=== PATIENT | female | born 1990 | race Caucasian/White ===

== ENCOUNTER 2016-05-30 08:01 | Emergency (ER) | payer BC ==
[2016-05-30 08:13] VITALS: RESP 18
--- NOTE | 2016-05-30 08:36 | ED ---
Female Urogenital HPI - General Chief complaint: Vaginal Bleeding Stated complaint: poss miscarriage, 6 weeks Time Seen by Provider: 05/30/16 08:17 Source: patient, RN notes reviewed Mode of arrival: ambulatory - History of Present Illness Initial comments: 25-year-old female presents emergency Department chief complaint vaginal bleeding. Patient states she is A0. Patient states that she's had some spotting since Thursday. Patient states that it was more brownish in color on Thursday and states yesterday she had no bleeding. Patient states she woke up today and had small clot. Patient states she has no lower dental pain, cramping. Patient states that she went to the clinic the other day and one ultrasound though they did not perform one. Patient states that they did check to make sure she was . Patient states she has a phone call to [facility] for an appointment and they're scheduled call her back. Patient denies any nausea, vomiting diarrhea constipation. Patient denies any dysuria hematuria. Patient states that she had her blood type screen. Patient is O+ blood type. - Related Data Home Medications Medication Instructions Recorded Confirmed Pnv #78/Iron Asp Gly/FA#1/Dha 1 cap PO HS 05/30/16 05/30/16 [Prenate Dha Softgel] Allergies Allergy/AdvReac Type Severity Reaction Status Date / Time No Known Allergies Allergy Verified 05/30/16 08:13 Review of Systems ROS Statement: Those systems with pertinent positive or pertinent negative responses have been documented in the HPI. ROS Other: All systems not noted in ROS Statement are negative. Past Medical History Past Medical History: Asthma Additional Past Medical History / Comment(s): HX OF EXERCISE INDUCED ASTHMA History of Any Multi-Drug Resistant Organisms: None Reported Past Surgical History: Orthopedic Surgery Additional Past Surgical History / Comment(s): FX RT FIBULA REPAIR Past Anesthesia/Blood Transfusion Reactions: No Reported Reaction Past Psychological History: No Psychological Hx Reported Smoking Status: Never smoker Past Alcohol Use History: None Reported Past Drug Use History: None Reported - Past Family History Mother Family Medical History: CVA/TIA General Exam General appearance: alert, in no apparent distress Respiratory exam: Present: normal lung sounds bilaterally. Absent: respiratory distress, wheezes, rales, rhonchi, stridor Cardiovascular Exam: Present: regular rate, normal rhythm, normal heart sounds. Absent: systolic murmur, diastolic murmur, rubs, gallop, clicks GI/Abdominal exam: Present: soft, normal bowel sounds. Absent: distended, tenderness, guarding, rebound, rigid Skin exam: Present: warm, dry, intact, normal color. Absent: rash Course Vital Signs 05/30/16 05/30/16 08:10 11:03 Temperature 97.9 F 98.0 F Pulse Rate 71 67 Respiratory 18 18 Rate Blood Pressure 154/87 110/57 O2 Sat by Pulse 99 98 Oximetry Medical Decision Making - Medical Decision Making 25-year-old female presented for vaginal bleeding and . Patient was him clinic for blood work, urine. Patient states she is concerned. Patient did have an ultrasound here which showed early gestational sac though there is no heart activity at this time. Also early gestation. Patient is 5 weeks 4 days. Patient will follow-up with [facility]. Return parameters discussed. - Lab Data Result diagrams: 05/30/16 09:30 05/30/16 09:30 Lab Results 05/30/16 05/30/16 05/30/16 Range/Units 09:30 09:30 09:30 WBC 10.8 H (3.8-10.6) k/uL RBC 4.58 (3.80-5.40) m/uL Hgb 14.0 (11.4-16.0) gm/dL Hct 42.3 (34.0-46.0) % MCV 92.3 (80.0-100.0) fL MCH 30.5 (25.0-35.0) pg MCHC 33.1 (31.0-37.0) g/dL RDW 12.7 (11.5-15.5) % Plt Count 300 (150-450) k/uL Neutrophils % 66 % Lymphocytes % 25 % Monocytes % 5 % Eosinophils % 2 % Basophils % 0 % Neutrophils # 7.1 (1.3-7.7) k/uL Lymphocytes # 2.7 (1.0-4.8) k/uL Monocytes # 0.5 (0-1.0) k/uL Eosinophils # 0.2 (0-0.7) k/uL Basophils # 0.0 (0-0.2) k/uL Sodium 139 (137-145) mmol/L Potassium 3.9 (3.5-5.1) mmol/L Chloride 106 (98-107) mmol/L Carbon Dioxide 20 L (22-30) mmol/L Anion Gap 13 mmol/L BUN 11 (7-17) mg/dL Creatinine 0.66 (0.52-1.04) mg/dL Est GFR (MDRD) Af Amer >60 (>60 ml/min/1.73 sqM) Est GFR (MDRD) Non-Af >60 (>60 ml/min/1.73 sqM) Glucose 91 (74-99) mg/dL Calcium 9.5 (8.4-10.2) mg/dL HCG, Quant 8019.8 mIU/mL Urine Color Yellow Urine Appearance Clear (Clear) Urine pH 6.5 (5.0-8.0) Ur Specific [place] 1.020 (1.001-1.035) Urine Protein Negative (Negative) Urine Glucose (UA) Negative (Negative) Urine Ketones Negative (Negative) Urine Blood Trace H (Negative) Urine Nitrate Negative (Negative) Urine Bilirubin Negative (Negative) Urine Urobilinogen <2.0 (<2.0) mg/dL Ur Leukocyte Esterase Negative (Negative) Urine RBC 1 (0-5) /hpf Urine WBC <1 (0-5) /hpf Ur Squamous Epith Cells <1 (0-4) /hpf Urine Bacteria Rare H (None) /hpf Urine Mucus Rare H (None) /hpf Disposition Clinical Impression: Threatened miscarriage in early Disposition: HOME SELF-CARE Condition: Stable Instructions: Threatened Miscarriage (ED) Additional Instructions: Please return to the Emergency Department if symptoms worsen or any other concerns. Time of Disposition: 11:26
[2016-05-30 09:47] LABS: Basophils % (A) 0 %; CH 31.1; CHCM 33.8; Eosinophils # (A) 0.2 k/uL (0-0.7); Eosinophils % (A) 2 %; HCT 42.3 % (34.0-46.0); HDW 2.11; Luc # (Auto) 0.16; Luc % (Auto) 2; Lymphocytes # (A) 2.7 k/uL (1.0-4.8); Lymphocytes % (A) 25 %; MCH 30.5 pg (25.0-35.0); MCHC 33.1 g/dL (31.0-37.0); MCV 92.3 fL (80.0-100.0); Mean Platelet Volume 7.1; Monocytes # (A) 0.5 k/uL (0-1.0); Monocytes % (A) 5 %; Neutrophils # (A) 7.1 k/uL (1.3-7.7); Neutrophils % (A) 66 %; RBC 4.58 m/uL (3.80-5.40); RDW 12.7 % (11.5-15.5); WBC 10.8 k/uL (3.8-10.6); WBC (Perox) 11.55
[2016-05-30 09:54] LABS: Anion Gap 13 mmol/L; Blood Urea Nitrogen 11 mg/dL (7-17); Calcium 9.5 mg/dL (8.4-10.2); Carbon Dioxide 20 mmol/L (22-30); Chloride 106 mmol/L (98-107); Glucose 91 mg/dL (74-99); Non-African American GFR(MDRD) >60 (>60 ml/min/1.73 sqM); Potassium 3.9 mmol/L (3.5-5.1); Sodium 139 mmol/L (137-145)
[2016-05-30 10:08] LABS: Appearance,Urine Clear (Clear); Bacteria,Urine Rare /hpf; Bilirubin,Urine Negative (Negative); Glucose,Urine (UA) Negative (Negative); Ketones,Urine Negative (Negative); Leukocyte Esterase,Urine Negative (Negative); Mucus,Urine Rare /hpf; Nitrite,Urine Negative (Negative); PH, Urine 6.5 (5.0-8.0); Particle Count 1585; Protein,Urine Negative (Negative); RBC,Urine 1 /hpf (0-5); Squamous Epithelial Cell,Urine <1 /hpf (0-4); UA Billing (MACRO vs. MICRO) MICRO; Urobilinogen,Urine <2.0 mg/dL (<2.0); WBC,Urine <1 /hpf (0-5)
[2016-05-30 10:59] LABS: HCG,Quantitative Serum 8019.8 mIU/mL
[2016-05-30 11:05] VITALS: BP 110/57; PULSE 67; TEMP 98
--- NOTE | 2016-05-30 11:53 | US ---
EXAMINATION TYPE: US OB <=14 wks transvag DATE OF EXAM: 05/30/2016 10:06 AM COMPARISON: NONE CLINICAL HISTORY: Pain. spotting EXAM PERFORMED: Transvaginal (TV) and Transabdominal (TA) EXAM MEASUREMENTS: GESTATIONAL AGE / DATING Dates by LMP: (5 weeks/6 days) EDC: 01/24/2017 Dates by Current Scan: (5 weeks/4 days) EDC: 01/26/2017 MATERNAL ANATOMY Uterus: 8.4 x 5.6 x 4.1 cm Right Ovary: 2.9 x 2.5 x 2.2 cm Left Ovary: 3.5 x 2.5 x 2.5 cm Post CDS / Adnexa: no free fluid Presence of subchorionic bleed: anechoic lesion= 0.5 x 0.3 x 0.2 cm GESTATION / SURVEY CRL: not seen MSD: 1.0 cm (5 weeks/4 days) Yolk Sac (normal less than 6mm): 2.1 mm Heart Rate: CRL not seen IUP: No IUP seen at this time Date of LMP: 04/19/2017 Beta HcG (if available): not available TECHNOLOGIST IMPRESSION: GS and YS seen. pole not seen possibly due to early gestational age. IMPRESSION: Early intrauterine gestational sac may be present. This could be a blighted ovum. This may be too ear ly for a identification of a pole. Short-term follow-up and correlation with beta-hCG is recomm ended. Tiny implantation bleed may be adjacent to the gestational sac.
== END 2016-05-30 11:35 | disposition home or self-care (01) ==
LOC: EC 08:01
DX: O20.0 Threatened abortion (principal); Z3A.01 Less than 8 weeks gestation of pregnancy; Z79.899 Other long term (current) drug therapy
CPT/HCPCS: 36415; 76801; 76817; 80048; 81001; 84702; 85025; 86900; 86901; 99284

== ENCOUNTER → 2016-07-14 | Outpatient (CLI) | payer BC ==
[2016-07-14 15:27] LABS: CH 31.4; CHCM 33.6; HCT 39.3 % (34.0-46.0); HDW 2.12; HGB 13.3 gm/dL (11.4-16.0); MCH 31.8 pg (25.0-35.0); MCHC 33.9 g/dL (31.0-37.0); MCV 93.9 fL (80.0-100.0); Mean Platelet Volume 8.1; RBC 4.19 m/uL (3.80-5.40); RDW 13.2 % (11.5-15.5); WBC 8.2 k/uL (3.8-10.6)
[2016-07-14 15:38] LABS: Glucose 77 mg/dL (74-99); Non-African American GFR(MDRD) >60 (>60 ml/min/1.73 sqM)
[2016-07-14 16:09] LABS: Hepatitis B Surface Ag Index 0.07
[2016-07-15 04:53] LABS: Toxoplasma Antibody (IgG) <3.0 IU/mL (<7.2)
[2016-07-15 06:55] LABS: HIV-1/HIV-2 Ab Screen NONREAC (NON REAC)
== END | disposition home or self-care (01) ==
LOC: LABWHC1 14:53
PROVIDERS: ATTEND Obstetrics & Gynecology
DX: O26.819 Pregnancy related exhaustion and fatigue, unspecified trimester (principal); Z3A.00 Weeks of gestation of pregnancy not specified
CPT/HCPCS: 36415; 82565; 82947; 85027; 86762; 86777; 86778; 86780; 86850; 86900; 86901; 87340; 87389

== ENCOUNTER → 2016-07-16 | Outpatient (CLI) | payer BC ==
--- NOTE | 2016-07-16 16:22 | US ---
EXAMINATION TYPE: US OB <= 14 wk fetus DATE OF EXAM: 07/16/2016 4:11 PM COMPARISON: NONE CLINICAL HISTORY: O46.91 Bleeding/spotting 1st trimester. EXAM PERFORMED: OBTA EXAM MEASUREMENTS: GESTATIONAL AGE / DATING Physician Established: (12 weeks/4 days) EDC: 01/24/2017 Dates by LMP: (12 weeks/4 days) EDC: 01/24/2017 Dates by First Scan: (12 weeks/6 days) EDC: 01/26/2017 Dates by Current Scan for: (12 weeks/4 days) EDC: 01/24/2017 MATERNAL ANATOMY Uterus: 14.2 x 6.8 x 5.8cm Right Ovary: N/A Left Ovary: 3.5 x 3.2 x 1.8 Post CDS / Adnexa: wnl Presence of free fluid: no Presence of corpus luteal cyst: no Presence of subchorionic bleed: no GESTATION / SURVEY CRL: 6.1 (12 weeks/4 days) MSD: wnl Yolk Sac (normal less than 6mm): not seen Heart Rate: 161 bpm Rhythm: Normal IUP: Viable IUP Date of LMP: unknown Beta HcG (if available): not available IMPRESSION: Viable intrauterine gestation with a gestational age of 12 weeks 4 days +/- 7 days. Estimated date o f confinement based on this examination is 01/24/2017.
== END | disposition home or self-care (01) ==
LOC: RADUSWWP 15:57
PROVIDERS: ATTEND Obstetrics & Gynecology
DX: O46.91 Antepartum hemorrhage, unspecified, first trimester (principal); Z3A.12 12 weeks gestation of pregnancy
CPT/HCPCS: 76801

== ENCOUNTER → 2016-10-06 | Outpatient (CLI) | payer BC ==
[2016-10-06 10:40] LABS: CH 32.8; HCT 41.2 % (34.0-46.0); HDW 2.12; HGB 13.3 gm/dL (11.4-16.0); MCH 32.3 pg (25.0-35.0); MCHC 32.3 g/dL (31.0-37.0); MCV 99.9 fL (80.0-100.0); Mean Platelet Volume 7.6; RBC 4.12 m/uL (3.80-5.40); RDW 13.4 % (11.5-15.5); WBC 13.2 k/uL (3.8-10.6)
== END | disposition home or self-care (01) ==
LOC: LABWHC1 09:17
PROVIDERS: ATTEND Obstetrics & Gynecology
DX: Z34.82 Encounter for supervision of other normal pregnancy, second trimester (principal); Z3A.00 Weeks of gestation of pregnancy not specified
CPT/HCPCS: 36415; 82950; 85027

== ENCOUNTER → 2016-12-23 | Outpatient (CLI) | payer BC ==
--- NOTE | 2016-12-24 10:08 | US ---
EXAMINATION TYPE: US OB anatomy transabd DATE OF EXAM: 12/23/2016 COMPARISON: US HISTORY: O36.63X0 Large for dates TECHNIQUE: Transabdominal (TA) EXAM MEASUREMENTS: GESTATIONAL AGE / DATING Physician Established: (35 weeks/3 days) EDC: 01/24/2017 Dates by LMP: (35 weeks/3 days) EDC: 01/24/2017 Dates by First Scan: (35 weeks/1 days) EDC: 01/26/2017 Dates by Current Scan for: (34 weeks/2 days) EDC: SURVEY IUP: Single PLACENTA: Anterior PREVIA: No previa ABDULAZIZ: 12.9 cm Normal CERVICAL LENGTH (transabdominal: norm > 3.0cm): 4.3 cm BIOMETRY PRESENTATION: Breech BPD: 8.7 cm 35 weeks / 2 days HC: 31.2 cm 34 weeks / 6 days AC: 30.3 cm 34 weeks / 2 days FL: 6.7 cm 34 weeks / 3 days ESTIMATED WEIGHT IN GRAMS: 2438 grams ESTIMATED WEIGHT IN LBS/OZS: 5 lbs. 6 oz. WEIGHT PERCENTAGE BASED ON ESTABLISHED DATE: 23 % HC/AC: 1.0 Normal FL/AC: 22 Normal HEART RATE: 148 bpm RHYTHM: Normal ANATOMY SEEN (within normal limits): * Lateral Vent (< 1 cm) 0.7 cm Midline Falx Cavus Septi Pellucidi Four Chamber Heart Outflow tracts: LVOT/RVOT Stomach Situs Nose / Lips Diaphragm Kidneys (bilateral) Bladder Cord Insert Three Vessel Cord Arms (bilateral) ANATOMY NOT SEEN: * Cisterna Magna (< 1.1 cm) cm * Nuchal Fold (< 0.6 cm) cm * Cerebellum (varies with age) cm Choroid Plexus (bilateral) Longitudinal Spine Transverse Spine Legs (bilateral) Growth according to dates, limited anatomy scan due to advanced gestational age, crowding and p osition (spine down). IMPRESSION: Single intrauterine gestation 34 weeks 2 days gestation. Cardiac activity measures 148 bpm.
== END | disposition home or self-care (01) ==
LOC: RADUSWWP 16:22
PROVIDERS: ATTEND Obstetrics & Gynecology
DX: O36.63X0 Maternal care for excessive fetal growth, third trimester, not applicable or unspecified (principal); Z3A.34 34 weeks gestation of pregnancy
CPT/HCPCS: 76811

== ENCOUNTER 2017-02-01 04:32 | Emergency (ER) | payer BC ==
[2017-02-01] MEDS ORDERED: SODIUM CHLORIDE 0.9% 500 ML IV STA (04:40)
[2017-02-01] MEDS ORDERED: KETOROLAC 30 MG/ML 1 ML VIAL IVP STA (04:40)
[2017-02-01] MEDS ORDERED: ONDANSETRON 4 MG/2 ML VIAL IVP STA (04:40)
[2017-02-01] MEDS ORDERED: HYDROmorphone 1 MG/ML 1 ML SYRINGE IVP STA (04:40)
--- NOTE | 2017-02-01 04:42 | ED ---
General Adult HPI - General Stated complaint: Abdominal Pain Time Seen by Provider: 02/01/17 04:35 Source: RN notes reviewed - History of Present Illness Initial comments: This is a 26-year-old female who is by 3 weeks. Patient states at midnight tonight she started having right upper quadrant abdominal pain and it radiated to her back. Patient states she's been very nauseated and vomited times one. Patient denies any fever chills or cough. Patient denies any difficulty breathing shortness of breath. Patient denies any chest pain. Patient denies any lower abdominal pain. Patient denies any dysuria hematuria urinary frequency. Patient denies any diarrhea. Patient states she's had similar symptoms in the past but they usually go away and this pain has not yet gone away. - Related Data Home Medications Medication Instructions Recorded Confirmed 78/Iron/Folate 1/Dha 1 cap PO HS 05/30/16 01/08/17 [Prenate Dha Softgel] Previous Rx's Medication Instructions Recorded Acetaminophen-Codeine 300-30mg 2 each PO Q4HR PRN #30 tab 01/12/17 [Tylenol w/codeine #3] Ibuprofen [Motrin] 600 mg PO Q6HR PRN #30 tab 01/12/17 Allergies Allergy/AdvReac Type Severity Reaction Status Date / Time No Known Allergies Allergy Verified 05/30/16 08:13 Review of Systems ROS Statement: Those systems with pertinent positive or pertinent negative responses have been documented in the HPI. ROS Other: All systems not noted in ROS Statement are negative. Past Medical History Past Medical History: Asthma Additional Past Medical History / Comment(s): HX OF EXERCISE INDUCED ASTHMA History of Any Multi-Drug Resistant Organisms: None Reported Past Surgical History: Orthopedic Surgery, Tonsillectomy Additional Past Surgical History / Comment(s): FX RT FIBULA REPAIR Past Anesthesia/Blood Transfusion Reactions: No Reported Reaction Past Psychological History: No Psychological Hx Reported Smoking Status: Never smoker Past Alcohol Use History: None Reported Past Drug Use History: None Reported - Past Family History Mother Family Medical History: CVA/TIA General Exam - General Exam Comments Initial Comments: GENERAL: Patient is well-developed and well-nourished. Patient is nontoxic and well- hydrated and is in moderate distress. ENT: Neck is soft and supple. No significant lymphadenopathy is noted. Oropharynx is clear. Moist mucous membranes. Neck has full range of motion without eliciting any pain. EYES: The sclera were anicteric and conjunctiva were pink and moist. Extraocular movements were intact and pupils were equal round and reactive to light. Eyelids were unremarkable. PULMONARY: Unlabored respirations. Good breath sounds bilaterally. No audible rales rhonchi or wheezing was noted. CARDIOVASCULAR: There is a regular rate and rhythm without any murmurs gallops or rubs. Femoral pulses are equal bilaterally ABDOMEN: Moderate right upper quadrant pain SKIN: Skin is clear with no lesions or rashes and otherwise unremarkable. NEUROLOGIC: Patient is alert and oriented x3. Cranial nerves II through XII are grossly intact. Motor and sensory are also intact. Normal speech, volume and content. Symmetrical smile. MUSCULOSKELETAL: Normal extremities with adequate strength and full range of motion. LYMPHATICS: No significant lymphadenopathy is noted PSYCHIATRIC: Normal psychiatric evaluation. Course Vital Signs 02/01/17 04:39 Temperature 97.1 F L Pulse Rate 58 L Respiratory 19 Rate Blood Pressure 140/76 O2 Sat by Pulse 100 Oximetry Medical Decision Making - Medical Decision Making I will back into reevaluate the patient and she was having no abdominal pain. We ambulated the patient and waited a little longer and the patient continued to remain pain-free. I instructed the patient to follow-up with her primary medical care doctor and get a ultrasound to make sure her gallbladder was not acting up. Patient agreed to follow up. Patient states the pain came back she would return to emergency department immediately. - Lab Data Result diagrams: 02/01/17 04:45 02/01/17 04:45 Lab Results 02/01/17 02/01/17 02/01/17 Range/Units 04:45 04:45 04:54 WBC 8.1 (3.8-10.6) k/uL RBC 4.43 (3.80-5.40) m/uL Hgb 13.8 (11.4-16.0) gm/dL Hct 42.7 (34.0-46.0) % MCV 96.5 (80.0-100.0) fL MCH 31.1 (25.0-35.0) pg MCHC 32.2 (31.0-37.0) g/dL RDW 12.8 (11.5-15.5) % Plt Count 300 (150-450) k/uL Neutrophils % 66 % Lymphocytes % 27 % Monocytes % 4 % Eosinophils % 2 % Basophils % 0 % Neutrophils # 5.3 (1.3-7.7) k/uL Lymphocytes # 2.1 (1.0-4.8) k/uL Monocytes # 0.3 (0-1.0) k/uL Eosinophils # 0.2 (0-0.7) k/uL Basophils # 0.0 (0-0.2) k/uL Sodium 142 (137-145) mmol/L Potassium 4.0 (3.5-5.1) mmol/L Chloride 105 (98-107) mmol/L Carbon Dioxide 25 (22-30) mmol/L Anion Gap 12 mmol/L BUN 9 (7-17) mg/dL Creatinine 0.92 (0.52-1.04) mg/dL Est GFR (MDRD) Af Amer >60 (>60 ml/min/1.73 sqM) Est GFR (MDRD) Non-Af >60 (>60 ml/min/1.73 sqM) Glucose 98 (74-99) mg/dL Calcium 10.1 (8.4-10.2) mg/dL Total Bilirubin 0.3 (0.2-1.3) mg/dL AST 18 (14-36) U/L ALT 34 (9-52) U/L Alkaline Phosphatase 101 (38-126) U/L Total Protein 6.9 (6.3-8.2) g/dL Albumin 4.0 (3.5-5.0) g/dL Amylase 49 (30-110) U/L Lipase 85 (23-300) U/L Urine Color Yellow Urine Appearance Cloudy H (Clear) Urine pH 5.5 (5.0-8.0) Ur Specific [place] 1.014 (1.001-1.035) Urine Protein Trace H (Negative) Urine Glucose (UA) Negative (Negative) Urine Ketones Negative (Negative) Urine Blood Large H (Negative) Urine Nitrite Negative (Negative) Urine Bilirubin Negative (Negative) Urine Urobilinogen <2.0 (<2.0) mg/dL Ur Leukocyte Esterase Large H (Negative) Urine RBC 38 H (0-5) /hpf Urine WBC 83 H (0-5) /hpf Ur Squamous Epith Cells 6 H (0-4) /hpf Urine Mucus Rare H (None) /hpf Disposition Clinical Impression: Abdominal pain Disposition: HOME SELF-CARE Condition: Good Instructions: Abdominal Pain (ED) Referrals: None,Stated [Primary Care Provider] - 1-2 days Time of Disposition: 06:12
[2017-02-01 04:43] VITALS: BP 140/76; PULSE 58; RESP 19; TEMP 97.1
[2017-02-01 05:02] LABS: Basophils % (A) 0 %; CH 32.5; CHCM 33.7; Eosinophils # (A) 0.2 k/uL (0-0.7); Eosinophils % (A) 2 %; HCT 42.7 % (34.0-46.0); HDW 1.98; HGB 13.8 gm/dL (11.4-16.0); Luc % (Auto) 1; Lymphocytes # (A) 2.1 k/uL (1.0-4.8); Lymphocytes % (A) 27 %; MCH 31.1 pg (25.0-35.0); MCHC 32.2 g/dL (31.0-37.0); MCV 96.5 fL (80.0-100.0); Mean Platelet Volume 7.8; Monocytes # (A) 0.3 k/uL (0-1.0); Monocytes % (A) 4 %; Neutrophils # (A) 5.3 k/uL (1.3-7.7); Neutrophils % (A) 66 %; RBC 4.43 m/uL (3.80-5.40); RDW 12.8 % (11.5-15.5); WBC 8.1 k/uL (3.8-10.6); WBC (Perox) 8.14
[2017-02-01 05:11] LABS: Appearance,Urine Cloudy (Clear); Bilirubin,Urine Negative (Negative); Glucose,Urine (UA) Negative (Negative); Ketones,Urine Negative (Negative); Leukocyte Esterase,Urine Large (Negative); Mucus,Urine Rare /hpf; Nitrite,Urine Negative (Negative); PH, Urine 5.5 (5.0-8.0); Particle Count 11234; Protein,Urine Trace (Negative); RBC,Urine 38 /hpf (0-5); Specific Gravity,Urine 1.014 (1.001-1.035); Squamous Epithelial Cell,Urine 6 /hpf (0-4); UA Billing (MACRO vs. MICRO) MICRO; Urobilinogen,Urine <2.0 mg/dL (<2.0); WBC,Urine 83 /hpf (0-5)
[2017-02-01 05:11] LABS: ALT 34 U/L (9-52); AST 18 U/L (14-36); Alkaline Phosphatase 101 U/L (38-126); Amylase 49 U/L (30-110); Anion Gap 12 mmol/L; Blood Urea Nitrogen 9 mg/dL (7-17); Calcium 10.1 mg/dL (8.4-10.2); Carbon Dioxide 25 mmol/L (22-30); Chloride 105 mmol/L (98-107); Glucose 98 mg/dL (74-99); Non-African American GFR(MDRD) >60 (>60 ml/min/1.73 sqM); Sodium 142 mmol/L (137-145); Total Bilirubin 0.3 mg/dL (0.2-1.3); Total Protein 6.9 g/dL (6.3-8.2)
--- NOTE | 2017-02-01 06:10 | XR ---
EXAM: XR Abdomen, 1 View. CLINICAL HISTORY: Reason: abdominal pain TECHNIQUE: Frontal supine view of the abdomen/pelvis. COMPARISON: No relevant prior studies available. FINDINGS: Gastrointestinal tract: Bowel gas pattern is nonobstructive. Normal colonic fecal load. No abnormal calcifications within the projection of the abdomen. Bones: Unremarkable. No acute fracture. IMPRESSION: Normal abdomen and pelvis.
== END 2017-02-01 06:24 | disposition home or self-care (01) ==
LOC: EC 04:32
DX: O99.89 Other specified diseases and conditions complicating pregnancy, childbirth and the puerperium (principal); R10.11 Right upper quadrant pain; R11.2 Nausea with vomiting, unspecified; Z79.899 Other long term (current) drug therapy
CPT/HCPCS: 99284 ×2; 96374 ×2; 96375 ×3; 96361 ×3; 36415; 80053; 82150; 83690; 85025; 81001; 74000; J2405; J1885; J1170

== ENCOUNTER → 2017-02-09 | Outpatient (CLI) | payer BC ==
--- NOTE | 2017-02-09 11:33 | US ---
EXAMINATION TYPE: US gallbladder DATE OF EXAM: 02/09/2017 COMPARISON: NONE CLINICAL HISTORY: K80.10 chronic cholecystitis. Patient states having RUQ pain, NPO EXAM MEASUREMENTS: Liver Length: 18.0 cm Gallbladder Wall: 0.3 cm CHD: 0.4 cm Right Kidney: 10.2 x 4.6 x 4.3 cm Pancreas: wnl Liver: Within normal limits Gallbladder: Multiple echogenic foci with shadow, wall= 3.3 mm Evidence for sonographic More's sign: neg CHD: wnl Right Kidney: Medial anechoic area seen at hilum = 1.3 x 1.3 cm IMPRESSION: 1. Cholelithiasis without sonographic evidence of cholecystitis. 2. Probable 1.3 cm renal sinus cyst.
== END | disposition home or self-care (01) ==
LOC: RADUSWWP 10:58
PROVIDERS: ATTEND Surgery
DX: K80.20 Calculus of gallbladder without cholecystitis without obstruction (principal)
CPT/HCPCS: 76705

== ENCOUNTER → 2017-12-15 | Outpatient (CLI) | payer BC ==
[2017-12-15 10:12] LABS: HGB 12.9 gm/dL (11.4-16.0); MCH 30.4 pg (25.0-35.0); MCHC 33.1 g/dL (31.0-37.0); MCV 91.9 fL (80.0-100.0); Mean Platelet Volume 7.4; Platelet Count 257 k/uL (150-450); RBC 4.25 m/uL (3.80-5.40); WBC 11.3 k/uL (3.8-10.6)
[2017-12-15 10:17] LABS: Glucose 94 mg/dL (74-99)
== END | disposition home or self-care (01) ==
LOC: LABWHC1 09:31
PROVIDERS: ATTEND Obstetrics & Gynecology
DX: Z34.81 Encounter for supervision of other normal pregnancy, first trimester (principal)
CPT/HCPCS: 36415; 82565; 82947; 85027; 86762; 86780; 86850; 86900; 86901; 87340

== ENCOUNTER → 2018-03-27 | Outpatient (CLI) | payer BC ==
[2018-03-27 09:58] LABS: MCH 31.7 pg (25.0-35.0); MCHC 33.2 g/dL (31.0-37.0); MCV 95.6 fL (80.0-100.0); Platelet Count 232 k/uL (150-450); RBC 4.08 m/uL (3.80-5.40); RDW 12.8 % (11.5-15.5); WBC 11.4 k/uL (3.8-10.6)
== END ==
LOC: LABWHC1 08:20
PROVIDERS: ATTEND Obstetrics & Gynecology
DX: Z34.82 Encounter for supervision of other normal pregnancy, second trimester (principal); Z3A.00 Weeks of gestation of pregnancy not specified
CPT/HCPCS: 36415; 82950; 85027

== ENCOUNTER 2018-06-28 12:03 | Outpatient (CLI) | payer BC ==
--- NOTE | 2018-06-28 13:23 | US ---
EXAMINATION TYPE: US OB >= 14 wk fetus DATE OF EXAM: 06/28/2018 COMPARISON: None CLINICAL HISTORY: decreased movement, Sent from Dr. James's office for decreased movemen t and low heart rate, patient states she has tightness in her abdomen. TECHNIQUE: Transabdominal (TA) GESTATIONAL AGE / DATING Physician Established: (37 weeks/1 days) EDC: 07/18/2018 Dates by LMP: Unknown Dates by First Scan: No previous scan here Dates by Current Scan: (36 weeks/5 days) EDC: 07/21/2018 SURVEY IUP: Single PLACENTA: Posterior: 2.2cm hypoechoic area seen within placenta, possible placental knight PREVIA: No Previa ABDULAZIZ: 13.3 cm Normal CERVICAL LENGTH (transabdominal: norm > 3.0cm): 3.3 cm BIOMETRY PRESENTATION: Vertex BPD: 8.9 cm 35 weeks / 6 days HC: 31.9 cm 36 weeks / 0 days AC: 33.9 cm 37 weeks / 6 days FL: 7.4 cm 37 weeks / 6 days ESTIMATED WEIGHT IN GRAMS: 3195 grams ESTIMATED WEIGHT IN LBS/OZ: 7 lbs. 1 oz. WEIGHT PERCENTAGE BASED ON ESTABLISHED DATES: 64% HC/AC: 0.94 Normal FL/AC: 21.84 Normal HEART RATE: 124 bpm RHYTHM: Normal MATERNAL WALL MEASUREMENT: 4.7 cm from skin to anterior uterine wall (if exam limited due to body hab itus). Difficult and limited study due to patient body habitus, limited visualization of placenta due to p osterior position, limited visualization for BPD and HC measurements due to position. Viable single IUP measuring 36 weeks 5 days with a heart rate of 124bpm and an estimated delivery ana e of 07/21/2018. IMPRESSION: Suboptimal study with live intrauterine gestation that is confirmed. heart tones are regular an d within normal limits. Placenta not well evaluated on images saved. No previa is noted.
[2018-06-28 14:44] VITALS: BP 145/78; PULSE 74; RESP 16; TEMP 97.2
--- NOTE | 2018-07-20 07:43 | P.MSEPDOC ---
Presenting Problems - Arrival Data Date of Arrival on Unit: 06/28/18 Time of Arrival on Unit: 12:03 Mode of Transport: Ambulatory - Complaint OB-Reason for Admission/Chief Complaint: NST, Observation/Evaluation Comment: pt sent from office for decreased movement and low heart rate Medical History - Information : 2 Para: 1 Term: 1 : 0 Abortions: Spontaneous or Elective: 0 Number of Living Children: 1 - Gestational Age Gestational Age by SERGIO (wks/days): 37 Weeks and 1 Days - History Complications: Prior Review of Systems - Review of Systems Constitutional: No problems Breast: No problems ENT: No problems Cardiovascular: No problems Respiratory: No problems Gastrointestinal: No problems Genitourinary: No problems Musculoskeletal: No problems Neurological: No problems Skin: No problems Vital Signs - Temperature Temperature: 97.2 F Temperature Source: Oral - Pulse Right Sitting Pulse Rate: 74 Pulse Assessment Method: Automatic Cuff - Respirations Respiratory Rate: 16 Oxygen Delivery Method: Room Air - Blood Pressure Right Arm Blood Pressure: 145/78 Blood Pressure Mean: 100 Blood Pressure Source: Automatic Cuff Physician Notification (Pre) - Physician Notified Physician Notified Date: 06/28/18 Physician Notified Time: 13:57 Physician/Practitioner Notifed:: Jacob Koenig Order Received: Yes (D/ C home) Disposition - Disposition OB Disposition: Discharge to home Discharge Date: 06/28/18 Discharge Time: 14:00 I agree with the RN Medical Screening Exam: Yes Risk & Benefit of care provided described in d/c instruction: Yes Diagnosis: DECREASED MOVEMENTS, THIRD TRIMESTER, FETUS 1
== END 2018-06-28 14:00 | disposition home or self-care (01) ==
LOC: FBPOP 12:03
PROVIDERS: ATTEND Obstetrics & Gynecology
DX: O36.8130 Decreased fetal movements, third trimester, not applicable or unspecified (principal); Z3A.37 37 weeks gestation of pregnancy
CPT/HCPCS: 59025; 76805

== ENCOUNTER 2018-07-01 09:48 | Outpatient (CLI) | payer BC ==
--- NOTE | 2018-07-01 10:33 | US ---
EXAMINATION TYPE: US OB limited DATE OF EXAM: 07/01/2018 COMPARISON: Recent OB ultrasound 3 days ago. CLINICAL HISTORY: ABDULAZIZ. decreased movement, assess abdulaziz EXAM PERFORMED: OBTA GESTATIONAL AGE / DATING Physician Established: (37 weeks/4 days) EDC: 07/18/2018 No growth performed on today?s study per ordering physician SURVEY ABDULAZIZ: 14.5 cm Normal Ultrasound evidence of premature rupture of membranes? no PRESENTATION: Vertex LIE: Longitudinal HEART RATE: 112 bpm RHYTHM: normal IMPRESSION: Limited OB ultrasound shows calculated amniotic fluid index to remain within normal limi ts. Single live intrauterine gestation remains present. heart rate lower limits of normal curre ntly.
[2018-07-01 11:39] VITALS: BP 130/72; PULSE 69; RESP 16; TEMP 97.3
--- NOTE | 2018-07-20 07:44 | P.MSEPDOC ---
Presenting Problems - Arrival Data Date of Arrival on Unit: 07/01/18 Time of Arrival on Unit: 09:46 Mode of Transport: Ambulatory - Complaint OB-Reason for Admission/Chief Complaint: Decreased Movement Comment: sent from office for prolonged fht monitoring and ABDULAZIZ u/s Medical History - Information : 2 Para: 1 Term: 0 : 1 Abortions: Spontaneous or Elective: 0 Number of Living Children: 1 - Gestational Age Gestational Age by SERGIO (wks/days): 37 Weeks and 4 Days - History Complications: Prior Review of Systems - Review of Systems Constitutional: No problems Breast: No problems ENT: No problems Cardiovascular: No problems Respiratory: No problems Gastrointestinal: No problems Genitourinary: No problems Musculoskeletal: No problems Neurological: No problems Skin: No problems Vital Signs - Temperature Temperature: 97.3 F Temperature Source: Temporal Artery Scan - Pulse Right Pulse Rate: 69 Pulse Assessment Method: Pulse Oximetry - Respirations Respiratory Rate: 16 O2 Sat by Pulse Oximetry: 98 - Blood Pressure Right Arm Blood Pressure: 130/72 Blood Pressure Mean: 91 Blood Pressure Source: Automatic Cuff Medical Screen Scoring (Pre) - Cervical Exam Dilation: 1-3 cm = 1 Membranes: Intact - Uterine Contractions Frequency: > or = 36 weeks =2 Duration: > 40 seconds = 2 Intensity: N/A - Maternal Vital Signs Maternal Temperature: N/A Maternal Blood Pressure: N/A Signs of Preeclampsia: N/A Maternal Respirations: N/A - Assessment Baseline FHR: 105 Heart Rate - NICHD Category: Category I (Normal) = 0 NST: Reactive Position: N/A Station: N/A - Total Score Total Score (Pre): 5 - Level of Risk Level of Risk: Low (0-5) Physician Notification (Pre) - Physician Notified Physician Notified Date: 07/01/18 Physician Notified Time: 11:33 Physician/Practitioner Notifed:: Dr James - Notification Comment Comment: Dr James called at office. Reported on fhts, cntrx pattern but pt isn't. feeling them, SVE unchanged x3 weeks, ABDULAZIZ is 14.58 per u/s, BP WNL. Orders to d/c home. with instructions. pt to return with continued or worsening sx. office will call pt and. reschedule her for this next thursday. Disposition - Disposition OB Disposition: Discharge to home Discharge Date: 07/01/18 Discharge Time: 11:45 I agree with the RN Medical Screening Exam: Yes Risk & Benefit of care provided described in d/c instruction: Yes Diagnosis: DECREASED MOVEMENTS, THIRD TRIMESTER, FETUS 1
== END 2018-07-01 11:45 | disposition home or self-care (01) ==
LOC: FBPOP 09:48
PROVIDERS: ATTEND Obstetrics & Gynecology
DX: O36.8130 Decreased fetal movements, third trimester, not applicable or unspecified (principal); Z3A.37 37 weeks gestation of pregnancy
CPT/HCPCS: 59020; 59025; 76815; 99213

== ENCOUNTER 2018-07-06 06:03 | Inpatient (IN) | payer BC ==
[2018-07-06] MEDS ORDERED: CITRIC ACID-SODIUM CITRATE 15 ML CUP PO ONE (06:14)
[2018-07-06] MEDS ORDERED: LACTATED RINGERS 1,000 ML IV ONE (06:14)
[2018-07-06 06:29] VITALS: BMI 42.5
[2018-07-06] MEDS ORDERED: ceFAZolin IN SWFI 2 GM/20 ML SYRINGE IVP ONE (06:30)
[2018-07-06 06:35] LABS: Basophils % (A) 0 %; Eosinophils # (A) 0.1 k/uL (0-0.7); Eosinophils % (A) 1 %; HCT 39.4 % (34.0-46.0); Lymphocytes # (A) 2.1 k/uL (1.0-4.8); Lymphocytes % (A) 24 %; MCH 29.9 pg (25.0-35.0); MCV 90.3 fL (80.0-100.0); Monocytes # (A) 0.3 k/uL (0-1.0); Monocytes % (A) 4 %; Neutrophils # (A) 6.2 k/uL (1.3-7.7); Neutrophils % (A) 70 %; Platelet Count 272 k/uL (150-450); RBC 4.36 m/uL (3.80-5.40); RDW 13.4 % (11.5-15.5); WBC 8.9 k/uL (3.8-10.6)
[2018-07-06] MEDS: LACTATED RINGERS 1,000 ML IV SCH (07:32)
--- NOTE | 2018-07-06 07:52 | P.HPOB ---
History of Present Illness H&P Date: 07/06/18 Chief Complaint: gestational hypertension, previous 27 year old presents at 38 weeks 2 days for repeat low transverse c- section. She had some elevated BPs last week in triage and then again yesterday in my office. She fit the criteria to be diagnosed with gestational hypertension and per ACOG guidelines should be delivered. heart tones are 120's and re active. Review of Systems All systems: negative Constitutional: Denies chills, Denies fever Eyes: denies blurred vision, denies pain Ears, nose, mouth and throat: Denies headache, Denies sore throat Cardiovascular: Denies chest pain, Denies shortness of breath Respiratory: Denies cough Gastrointestinal: Denies abdominal pain, Denies diarrhea, Denies nausea, Denies vomiting Genitourinary: Denies dysuria, Denies hematuria Musculoskeletal: Denies myalgias Integumentary: Denies pruritus, Denies rash Neurological: Denies numbness, Denies weakness Psychiatric: Denies anxiety, Denies depression Endocrine: Denies fatigue, Denies weight change Past Medical History Past Medical History: Asthma Additional Past Medical History / Comment(s): OB history: first was a primary . This is her second and she has had care with me since the first trimester. She was diagnosed with gestational hypertension yesterday and since she is over 37 weeks, needs to be delivered. History of Any Multi-Drug Resistant Organisms: None Reported Past Surgical History: Section, Orthopedic Surgery, Tonsillectomy Additional Past Surgical History / Comment(s): FX RT FIBULA REPAIR Past Anesthesia/Blood Transfusion Reactions: No Reported Reaction Past Psychological History: No Psychological Hx Reported Smoking Status: Never smoker Past Alcohol Use History: None Reported Past Drug Use History: None Reported - Past Family History Mother Family Medical History: Cancer, CVA/TIA, Diabetes Mellitus, Hypertension Medications and Allergies Home Medications Medication Instructions Recorded Confirmed Type 78/Iron/Folate 1/Dha 1 cap PO HS 05/30/16 07/06/18 History [Prenate Dha Softgel] Allergies Allergy/AdvReac Type Severity Reaction Status Date / Time No Known Allergies Allergy Verified 07/01/18 09:56 Exam Osteopathic Statement: *. No significant issues noted on an osteopathic structural exam other than those noted in the History and Physical/Consult. Vital Signs Temp Pulse Resp BP 07/06/18 06:12 97.2 F L 82 16 124/73 Intake and Output 07/05/18 07/06/18 07/06/18 22:59 06:59 14:59 Other: Weight 102.058 kg Heart: Regular rate and rhythm Lungs: Clear to auscultation bilaterally Abdomen: Soft, nontender Extremities: Negative Homans sign Results Result Diagrams: 07/06/18 06:15 Assessment and Plan (1) Previous section Current Visit: Yes Status: Acute Code(s): Z98.891 - HISTORY OF UTERINE SCAR FROM PREVIOUS SURGERY SNOMED Code(s): 515351903 (2) Gestational hypertension Current Visit: Yes Status: Acute Code(s): O13.9 - GESTATIONAL HTN W/O SIGNIFICANT PROTEINURIA, UNSP TRIMESTER SNOMED Code(s): 208811776 Plan: 1. Repeat low transverse
[2018-07-06] MEDS ORDERED: OXYTOCIN 10 UNIT/ML 1 ML VIAL ONE (07:56)
[2018-07-06] MEDS ORDERED: KETOROLAC 30 MG/ML 1 ML VIAL ONE (07:56)
[2018-07-06] MEDS ORDERED: ePHEDrine SULFATE/0.9% NACL/PF 50 MG/5 ML SYRINGE IV ONE (07:56)
[2018-07-06] MEDS ORDERED: NALBUPHINE 10 MG/ML (1 ML AMP) ONE (07:56)
[2018-07-06] MEDS ORDERED: ONDANSETRON 4 MG/2 ML VIAL ONE (07:56)
[2018-07-06] MEDS ORDERED: MORPHINE SULFATE (PF) 0.3 MG/0.3 ML SYR ONE (07:56)
[2018-07-06] MEDS ORDERED: IBUPROFEN 600 MG TAB PO PRN (08:43)
[2018-07-06] MEDS ORDERED: ONDANSETRON 4 MG/2 ML VIAL IVP PRN (08:43)
[2018-07-06] MEDS ORDERED: NALOXONE 0.4 MG/ML 1 ML VIAL IV PRN (08:43)
[2018-07-06] MEDS ORDERED: ZOLPIDEM 5 MG TAB PO PRN (08:43)
[2018-07-06] MEDS ORDERED: diphenhydrAMINE 25 MG CAP PO PRN (08:43)
[2018-07-06] MEDS ORDERED: diphenhydrAMINE 50 MG/ML 1 ML VIAL IVP PRN ×2 (08:43)
[2018-07-06] MEDS ORDERED: LANOLIN CREAM 5 GM TUBE TOPICAL PRN (08:43)
[2018-07-06] MEDS ORDERED: ACETAMINOPHEN TAB 325 MG TAB PO PRN (08:43)
[2018-07-06] MEDS ORDERED: MEASLES-MUMPS-RUBELLA VACC/PF 12,500 UNIT/0.5 ML VIAL SQ ONE (08:43)
[2018-07-06] MEDS ORDERED: METOCLOPRAMIDE 5 MG/ML 2 ML VIAL IVP PRN (08:43)
[2018-07-06] MEDS ORDERED: SIMETHICONE 80 MG CHEWABLE PO PRN (08:43)
[2018-07-06] MEDS ORDERED: diphenhydrAMINE 50 MG CAP PO PRN (08:43)
[2018-07-06] MEDS ORDERED: OXYTOCIN 20 UNITS/1000 ML NS 1,000 ML IV SCH (08:45)
--- NOTE | 2018-07-06 08:47 | P.OP ---
Date of Procedure: 07/06/18 Preoperative Diagnosis: 1. at 38 weeks and 2 days 2. Previous section 3. Gestational hypertension Postoperative Diagnosis: 1. at 38 weeks and 2 days 2. Previous section 3. Gestational hypertension Procedure(s) Performed: Repeat low transverse Anesthesia: spinal Surgeon: Brenda James Emery Grinder #1: [place] Grimes Estimated Blood Loss (ml): 400 IV fluids (ml): 800 Urine output (ml): 200 Pathology: other (Placenta) Condition: stable Disposition: floor Operative Findings: Viable female, Apgars 9, 9, weight 7 lbs. 6 oz. Nuchal cord 1, meconium fluid. Description of Procedure: Patient was taken to the operating room where spinal anesthesia was found be adequate. She was prepped and draped in normal sterile fashion in dorsal supine position with a leftward tilt. Pfannenstiel skin incision was made the scalpel and carried through to the underlying layer of fascia with the scalpel. Fascia was incised in midline and carried bilaterally with the Mcfarland scissors. The superior aspect of the fascial incision was grasped with [place] clamps elevated and the underlying rectus muscles dissected off with the Mcfarland's. Attention was then turned to inferior aspect of same incision which in a similar fashion was grasped tented up and the underlying rectus muscles dissected off with the Mcfarland's. The rectus muscles were the midline and the peritoneum was identified tented up and entered sharply with the scalpel. The incision was extended superiorly and inferiorly with good visualization of the bladder. The bladder blade was inserted and the vesicouterine peritoneum was incised the [place] then carried bilaterally and bladder flap created digitally. A low transverse incision was then made on the uterus with the scalpel. This was carried bilaterally and digital manner. Meconium-stained fluid was seen. Infant's head delivered atraumatically, nose and mouth bulb suctioned, nuchal cord 1 easily reduced, rest of body delivered, cord clamped and cut, handed off to waiting nurses. Apgars 9,9, weight 7 lbs. 6 oz. Placenta delivered manually, intact with three-vessel cord. The uterus is exteriorized and cleared of all clots and debris. The uterine incision was closed with 0 Vicryl in a running locked fashion. Second layer of the same sutures used in imbricating fashion to obtain excellent hemostasis. Bladder flap was then reapproximated using 2-0 Vicryl in a running fashion. Both ovaries and tubes appeared normal. The uterus was placed back into the abdomen. The peritoneum was reapproximated using 2-0 Vicryl in a running fashion. The muscles were reapproximated using 2-0 Vicryl in interrupted fashion. The fascia was reapproximated using 0 Vicryl in a running fashion. The subcutaneous tissues closed with 3-0 Vicryl running fashion. The skin was closed chely. Patient tolerated the procedure well, sponge and instrument counts were correct times 2 and she was taken to the recovery room in stable condition.
[2018-07-06] MEDS: SENNOSIDES-DOCUSATE SODIUM 1 EACH TAB PO SCH (22:56)
[2018-07-07] MEDS: LACTATED RINGERS 1,000 ML IV SCH ×5 (03:21→05:16)
[2018-07-07] MEDS: KETOROLAC 30 MG/ML 1 ML VIAL IVP PRN ×2 (04:44→12:17)
[2018-07-07] MEDS: SENNOSIDES-DOCUSATE SODIUM 1 EACH TAB PO SCH ×2 (07:50→21:25)
[2018-07-07 07:51] LABS: Basophils % (A) 0 %; Eosinophils % (A) 0 %; HCT 35.9 % (34.0-46.0); HGB 11.3 gm/dL (11.4-16.0); Lymphocytes # (A) 1.6 k/uL (1.0-4.8); Lymphocytes % (A) 15 %; MCH 29.5 pg (25.0-35.0); MCHC 31.6 g/dL (31.0-37.0); MCV 93.5 fL (80.0-100.0); Mean Platelet Volume 8.3; Monocytes # (A) 0.5 k/uL (0-1.0); Monocytes % (A) 4 %; Neutrophils # (A) 8.3 k/uL (1.3-7.7); Neutrophils % (A) 80 %; Platelet Count 220 k/uL (150-450); RBC 3.84 m/uL (3.80-5.40); RDW 13.4 % (11.5-15.5); WBC 10.5 k/uL (3.8-10.6)
[2018-07-07 16:11] VITALS: RESP 16
--- NOTE | 2018-07-07 20:34 | P.PN ---
Progress Note - Text Progress Note Date: 07/07/18 Postoperative day 1 status post section under spinal anesthesia and in trathecal Duramorph for postoperative analgesia.The patient is doing well, there is mild generalized skin itching. There are no other anesthesia related complications. The patient denies any paresthesia or weakness in the lower extremities. Further management as per the patient primary team.
[2018-07-07] MEDS: HYDROcodone/APAP 7.5-325MG 1 EACH TAB PO PRN (21:25)
[2018-07-08] MEDS: SENNOSIDES-DOCUSATE SODIUM 1 EACH TAB PO SCH (08:31)
[2018-07-08] MEDS ORDERED: MEASLES-MUMPS-RUBELLA VACC/PF 12,500 UNIT/0.5 ML VIAL SQ ONE (09:15)
--- NOTE | 2018-07-08 09:40 | P.DS ---
Providers Date of admission: 07/06/18 06:03 Expected date of discharge: 07/08/18 Attending physician: Brenda James Primary care physician: Stated None - Discharge Diagnosis(es) (1) Previous section Current Visit: Yes Status: Resolved (2) Gestational hypertension Current Visit: Yes Status: Acute (3) Status post repeat low transverse section Current Visit: Yes Status: Acute Hospital Course: Patient presented for repeat low transverse . She underwent this procedure without complication. She'll be discharged home day/postop day #2 in stable condition to follow-up with me in one week. She denies nausea, vomiting, chest pain, short of breath or calf pain. Her incision is clean, dry, intact with chely which will be removed prior to discharge. Plan - Discharge Summary New Discharge Prescriptions: New Ibuprofen [Motrin] 600 mg PO Q6HR PRN #30 tab PRN Reason: Mild Pain Or Fever >= 100.5 HYDROcodone/APAP 7.5-325MG [[place] 7.5-325] 1 each PO Q4H PRN #18 tab PRN Reason: Severe Pain No Action 78/Iron/Folate 1/Dha [Prenate Dha Softgel] 1 cap PO HS Discharge Medication List 78/Iron/Folate 1/Dha [Prenate Dha Softgel] 1 cap PO HS 05/30/16 [History] HYDROcodone/APAP 7.5-325MG [[place] 7.5-325] 1 each PO Q4H PRN #18 tab 07/08/18 [Rx] Ibuprofen [Motrin] 600 mg PO Q6HR PRN #30 tab 07/08/18 [Rx] Follow up Appointment(s)/Referral(s): Brenda James DO [Doctor of Osteopathic Medicine] - 1 Week Discharge Disposition: HOME SELF-CARE
--- NOTE | 2018-07-08 09:41 | P.PNOBGPC ---
Subjective - Subjective Principal diagnosis: Status post repeat low transverse postoperative day #1 Interval history: Patient seen and examined. Denies nausea, vomiting, chest pain, shortness of breath or calf pain. Patient reports: Reports appetite normal, Reports voiding normally, Reports pain well controlled, Reports ambulating normally [place]: doing well Objective - Vital Signs Latest vital signs: Vital Signs Temp Pulse Resp BP Pulse Ox 07/08/18 00:00 98.3 F 67 16 120/79 100 07/07/18 15:40 97.7 F 77 16 115/75 97 Intake and Output 07/07/18 07/08/18 07/08/18 22:59 06:59 14:59 Other: # Voids 1 - Exam Lungs: bilateral: normal Chest: Normal S1, Normal S2 Extremities: Present: normal Abdomen: Present: normal appearance, soft. Absent: distention, tenderness Incision: Present: normal, dry, intact Uterus: Present: normal, firm Assessment and Plan (1) Previous section Current Visit: Yes Status: Resolved Code(s): Z98.891 - HISTORY OF UTERINE SCAR FROM PREVIOUS SURGERY SNOMED Code(s): 261116224 (2) Gestational hypertension Current Visit: Yes Status: Acute Code(s): O13.9 - GESTATIONAL HTN W/O SIGNIFICANT PROTEINURIA, UNSP TRIMESTER SNOMED Code(s): 721980472 (3) Status post repeat low transverse section Current Visit: Yes Status: Acute Code(s): Z98.891 - HISTORY OF UTERINE SCAR FROM PREVIOUS SURGERY SNOMED Code(s): 854836243 Plan: Continue postoperative care
[2018-07-08 10:02] VITALS: BP 119/73; PULSE 76; TEMP 98.2
[2018-07-08] MEDS: HYDROcodone/APAP 7.5-325MG 1 EACH TAB PO PRN (12:02)
== END 2018-07-08 12:30 | disposition home or self-care (01) | DRG 788 ==
LOC: 4FBP 06:03
PROVIDERS: ADMIT Obstetrics & Gynecology; ATTEND Obstetrics & Gynecology
PROC: 10D00Z1 Extraction of Products of Conception, Low, Open Approach (ICD-10-PCS; principal; 2018-07-06 08:00)
DX: O34.211 Maternal care for low transverse scar from previous cesarean delivery (principal); O13.4 Gestational [pregnancy-induced] hypertension without significant proteinuria, complicating childbirth; O69.81X0 Labor and delivery complicated by cord around neck, without compression, not applicable or unspecified; O77.0 Labor and delivery complicated by meconium in amniotic fluid; Z3A.38 38 weeks gestation of pregnancy; Z37.0 Single live birth; Z82.49 Family history of ischemic heart disease and other diseases of the circulatory system; Z83.3 Family history of diabetes mellitus
CPT/HCPCS: 85025; 86850; 86900; 86901; 90707

== ENCOUNTER 2019-06-29 20:44 | Emergency (ER) | payer BC ==
[2019-06-29 20:49] VITALS: TEMP 98
[2019-06-29] MEDS ORDERED: PENICILLIN V POTASSIUM 250 MG TAB PO STA (22:11)
--- NOTE | 2019-06-29 22:25 | ED ---
ENT HPI - General Chief complaint: Dental/Oral Stated complaint: Dental Pain/Abcess Time Seen by Provider: 06/29/19 21:47 Source: patient Mode of arrival: ambulatory Limitations: no limitations - History of Present Illness Initial comments: Patient is a 28-year-old female presenting to emergency Department with complaints of right-sided dental pain 2 days. She has had a dental abscess in the past and this feels similar. Patient states she thought was feeling better today but then noticed some mild swelling to the right lower jaw are concerned. She denies any fever, chills, nausea, vomiting. She admits to having dental caries. She has no other complaints at this time. Upon arrival to the ER, her vital signs are stable. - Related Data Home Medications Medication Instructions Recorded Confirmed 78/Iron/Folate 1/Dha 1 cap PO HS 05/30/16 07/06/18 [Prenate Dha Softgel] Previous Rx's Medication Instructions Recorded HYDROcodone/APAP 7.5-325MG [[place] 1 each PO Q4H PRN #18 tab 07/08/18 7.5-325] Ibuprofen [Motrin] 600 mg PO Q6HR PRN #30 tab 07/08/18 Penicillin V Potassium [Pen Vee K] 500 mg PO QID 10 Days #40 tablet 06/29/19 Allergies Allergy/AdvReac Type Severity Reaction Status Date / Time No Known Allergies Allergy Verified 06/29/19 20:49 Review of Systems ROS Statement: Those systems with pertinent positive or pertinent negative responses have been documented in the HPI. ROS Other: All systems not noted in ROS Statement are negative. Past Medical History Past Medical History: Asthma Additional Past Medical History / Comment(s): OB history: first was a primary . This is her second and she has had care with me since the first trimester. She was diagnosed with gestational hypertension yesterday and since she is over 37 weeks, needs to be delivered. History of Any Multi-Drug Resistant Organisms: None Reported Past Surgical History: Section, Orthopedic Surgery, Tonsillectomy Additional Past Surgical History / Comment(s): FX RT FIBULA REPAIR Past Anesthesia/Blood Transfusion Reactions: No Reported Reaction Past Psychological History: No Psychological Hx Reported Smoking Status: Never smoker Past Alcohol Use History: None Reported Past Drug Use History: None Reported - Past Family History Mother Family Medical History: Cancer, CVA/TIA, Diabetes Mellitus, Hypertension General Exam - General Exam Comments Initial Comments: GENERAL: Well-appearing, well-nourished and in no acute distress. HEAD: Atraumatic, normocephalic. EYES: Pupils equal round and reactive to light, extraocular movements intact, sclera anicteric, conjunctiva are normal. ENT: TMs normal, nares patent, oropharynx clear without exudates. Moist mucous membranes. Multiple dental caries noted. Mild erythema and tenderness with palpation of the right lower gumline. No abscess seen. NECK: Normal range of motion, supple without lymphadenopathy or JVD. LUNGS: Breath sounds clear to auscultation bilaterally and equal. No wheezes rales or rhonchi. HEART: Regular rate and rhythm without murmurs, rubs or gallops. ABDOMEN: Soft, nontender, normoactive bowel sounds. No guarding, no rebound. No masses appreciated. : Deferred EXTREMITIES: Normal range of motion, no pitting or edema. No clubbing or cyanosis. NEUROLOGICAL: Normal speech, normal gait. PSYCH: Normal mood, normal affect. SKIN: Warm, Dry, normal turgor, no rashes or lesions noted. Limitations: no limitations Course Vital Signs 06/29/19 06/29/19 20:47 22:48 Temperature 98.0 F Pulse Rate 73 74 Respiratory 18 19 Rate Blood Pressure 137/80 137/71 O2 Sat by Pulse 99 98 Oximetry Medical Decision Making - Medical Decision Making Patient is a 28-year-old female presenting with a right-sided dental abscess 2 days. She does have some mild swelling of the right lower jaw. No overlying erythema. No abscess seen on exam. Discussed with patient this is most likely dental abscess. She'll be started on penicillin. Patient states she does have pain medication at home that has been working. She'll follow up with a dentist ROGELIO. Return parameters were discussed with the patient she verbalized understanding. She is in agreement with this plan of care. Disposition Clinical Impression: Dental abscess, Dental caries Disposition: HOME SELF-CARE Condition: Stable Instructions (If sedation given, give patient instructions): Dental Abscess (ED) Additional Instructions: Please return to the Emergency Department if symptoms worsen or any other concerns. Take antibiotic as prescribed. Continue with anti-inflammatories for pain relief. Follow-up with dentist ROGELIO. Prescriptions: Penicillin V Potassium [Pen Vee K] 500 mg PO QID 10 Days #40 tablet Is patient prescribed a controlled substance at d/c from ED?: No Referrals: None,Stated [Primary Care Provider] - 1-2 days
[2019-06-29 22:50] VITALS: BP 137/71; PULSE 74; RESP 19
== END 2019-06-29 22:48 | disposition home or self-care (01) ==
LOC: EC 20:44
DX: K04.7 Periapical abscess without sinus (principal); K02.9 Dental caries, unspecified
CPT/HCPCS: 99283

== ENCOUNTER 2023-03-20 16:58 | Emergency (ER) | payer BC ==
--- NOTE | 2023-03-20 17:26 | ED ---
General Adult HPI - General Source: patient, RN notes reviewed Mode of arrival: ambulatory Limitations: no limitations <Jojo Quick - Last Filed: 03/20/23 17:25> <Attila Ferraro - Last Filed: 03/20/23 20:34> - General Chief complaint: Shortness of Breath Stated complaint: Chest Congestion,SOB Time Seen by Provider: 03/20/23 17:25 - History of Present Illness Initial comments: 32-year-old female presents emergency department chief complaint of right-sided chest discomfort as needed cough and shortness of breath 3 weeks. She states that she has been on azithromycin, doxycycline, Augmentin and multiple rounds of steroids which has not improved her symptoms. She states that the discomfort is constant and worse with coughing and sneezing. She states that she has a pressure when she lies down in bed. She does have a history of asthma but no other significant past medical history. (Jojo Quick) 32-year-old female presenting to the ED with a chief complaint of cough. Patient states for the past 3 weeks has had cough, shortness of breath, and is now starting to have chest pain when she coughs or takes a deep breath. Patient reports that she was seen at urgent care twice for this. Patient states on the first visit was prescribed azithromycin and prednisone. States that she returned last week due to not improvement of symptoms and was provided Augmentin and doxycycline. Additionally she was also provided a Medrol Dosepak which patient reports she just completed. Despite this, patient notes ongoing symptoms. States that she return to the urgent care today who advised her to present to the ED to receive an x-ray to rule out pneumonia. No abdominal pain. No nausea vomiting diarrhea. No urinary changes. No other complaints. (Attila Ferraro) - Related Data Home Medications Medication Instructions Recorded Confirmed 78/Iron/Folate 1/Dha 1 cap PO HS 05/30/16 07/06/18 [Prenate Dha Softgel] Previous Rx's Medication Instructions Recorded HYDROcodone/APAP 7.5-325MG [Emmet 1 each PO Q4H PRN #18 tab 07/08/18 7.5-325] Ibuprofen [Motrin] 600 mg PO Q6HR PRN #30 tab 07/08/18 Penicillin V Potassium [Pen Vee K] 500 mg PO QID 10 Days #40 tablet 06/29/19 Allergies Allergy/AdvReac Type Severity Reaction Status Date / Time No Known Allergies Allergy Verified 06/29/19 20:49 Review of Systems ROS Other: All systems not noted in ROS Statement are negative. <Jojo Quick - Last Filed: 03/20/23 17:25> ROS Other: All systems not noted in ROS Statement are negative. <Attila Ferraro - Last Filed: 03/20/23 20:34> ROS Statement: Those systems with pertinent positive or pertinent negative responses have been documented in the HPI. Past Medical History Past Medical History: Asthma Additional Past Medical History / Comment(s): OB history: first was a primary . This is her second and she has had care with me since the first trimester. She was diagnosed with gestational hypertension yesterday and since she is over 37 weeks, needs to be delivered. History of Any Multi-Drug Resistant Organisms: None Reported Past Surgical History: Section, Orthopedic Surgery, Tonsillectomy Additional Past Surgical History / Comment(s): FX RT FIBULA REPAIR Past Anesthesia/Blood Transfusion Reactions: No Reported Reaction Past Psychological History: No Psychological Hx Reported Past Alcohol Use History: None Reported Past Drug Use History: None Reported - Past Family History Mother Family Medical History: Cancer, CVA/TIA, Diabetes Mellitus, Hypertension <Jojo Quick - Last Filed: 03/20/23 17:25> General Exam Limitations: no limitations <Jojo Quick - Last Filed: 03/20/23 17:25> General appearance: alert, in no apparent distress Neck exam: Present: normal inspection Respiratory exam: Present: normal lung sounds bilaterally, other (No evidence of respiratory distress.) Cardiovascular Exam: Present: regular rate, normal rhythm GI/Abdominal exam: Present: soft Neurological exam: Present: alert, oriented X3 Skin exam: Present: warm, dry <Attila Ferraro - Last Filed: 03/20/23 20:34> - General Exam Comments Initial Comments: Visual Physical Exam Vital signs reviewed General: Well-appearing, nontoxic, no acute distress. Head: Normocephalic, atraumatic Eyes: PERRLA, EOMI ENT: Airway patent Chest: Nonlabored breathing Skin: No visual rash, normal skin tone Neuro: Alert and oriented 3 Musculoskeletal: No gross abnormalities (Kumirandaka,Jojo) Course Vital Signs 03/20/23 17:20 Temperature 98.3 F Pulse Rate 85 Respiratory 16 Rate Blood Pressure 176/100 O2 Sat by Pulse 99 Oximetry Medical Decision Making <Jojo Quick - Last Filed: 03/20/23 17:25> - Lab Data Result diagrams: 03/20/23 17:44 03/20/23 17:44 <Attila Ferraro - Last Filed: 03/20/23 20:34> - Medical Decision Making Quick note preformed by Jojo Quick PA-C (Jojo Quick) Was pt. sent in by a medical professional or institution ([facility], [employer], urgent care, hospital, or care home...) When possible be specific @ -No Did you speak to anyone other than the patient for history (EMS, parent, family, police, friend...)? What history was obtained from this source @ -No Did you review nursing and triage notes (agree or disagree)? Why? @ -I reviewed and agree with nursing and triage notes Were old charts reviewed (outside hosp., previous admission, EMS record, old EKG, old radiological studies, urgent care reports/EKG's, care home records)? Report findings @ -No old charts were reviewed Differential Diagnosis (chest pain, altered mental status, abdominal pain women, abdominal pain men, vaginal bleeding, weakness, fever, dyspnea, syncope, headache, dizziness, GI bleed, back pain, seizure, CVA, palpatations, mental health, musculoskeletal)? @ -Differential Dyspnea: Coronary syndrome, arrhythmia, tamponade, asthma, COPD, pulmonary embolism, pneumonia, pneumothorax, pulmonary effusion, anaphylaxis, diabetic ketoacidosis, flailed chest, pulmonary contusion, diaphragmatic rupture, anemia, neuromuscular, this is not meant to be an all-inclusive list. EKG interpreted by me (3pts min.). @ -None X-rays interpreted by me (1pt min.). @ -Chest x-ray interpreted by me showing no evidence of pneumonia or other acute finding CT interpreted by me (1pt min.). @ -None done U/S interpreted by me (1pt. min.). @ -None done What testing was considered but not performed or refused? (CT, X-rays, U/S, labs)? Why? @ -None What meds were considered but not given or refused? Why? @ -None Did you discuss the management of the patient with other professionals (professionals i.e. , PA, CLEANER TOUCH UP WORKER, lab, RT, psych nurse, social work job titles, immigration lawyer, teacher, chief administrative officer, block and case maker)? Give summary @ -No Was smoking cessation discussed for >3mins.? @ -No Was critical care preformed (if so, how long)? @ -No Were there social determinants of health that impacted care today? How? (Homelessness, low income, unemployed, alcoholism, drug addiction, transportation, low edu. Level, literacy, decrease access to med. care, [place] [facility], rehab)? @ -No Was there de-escalation of care discussed even if they declined (Discuss DNR or withdrawal of care, Hospice)? DNR status @ -No What co-morbidities impacted this encounter? (DM, HTN, Smoking, COPD, CAD, Cancer, CVA, ARF, Chemo, Hep., AIDS, mental health diagnosis, sleep apnea, morbid obesity)? @ -None Was patient admitted / discharged? Hospital course, mention meds given and route, prescriptions, significant lab abnormalities, going to OR and other pertinent info. @ -Discharge 32-year-old female presenting to the ED with complaints of ongoing cough and dyspnea despite multiple antibiotic courses and steroid courses. Exam showed no adventitious lung sounds and no evidence of respiratory distress. Chest x-ray unremarkable. Laboratory studies including CBC, CMP, UA, troponin, d-dimer unremarkable. Patient reports having good supplies of her inhaler and nebulizer at home. Due to no evidence of respiratory distress on exam and having recently completed 2 courses of steroids, patient not provided steroids here today. Additionally with no respiratory distress patient has not provided a breathing treatment here today. Discharged home in stable condition. Discussed return precautions with patient who verbalizes agreement. Undiagnosed new problem with uncertain prognosis? @ -No Drug Therapy requiring intensive monitoring for toxicity (Heparin, Nitro, Insulin, Cardizem)? @ -No Were any procedures done? @ -No Diagnosis/symptom? @ -Upper respiratory infection Acute, or Chronic, or Acute on Chronic? @ -Acute Uncomplicated (without systemic symptoms) or Complicated (systemic symptoms)? @ -Uncomplicated Side effects of treatment? @ -No Exacerbation, Progression, or Severe Exacerbation? @ -No Poses a threat to life or bodily function? How? (Chest pain, USA, MS, pneumonia, PE, COPD, DKA, ARF, appy, cholecystitis, CVA, Diverticulitis, Homicidal, Suicid al, threat to staff... and all critical care pts) @ -No (Attila Ferraro) - Lab Data Lab Results 03/20/23 03/20/23 03/20/23 Range/Units 17:44 17:44 17:44 WBC 11.8 H (3.8-10.6) k/uL RBC 4.78 (3.80-5.40) m/uL Hgb 14.8 (11.4-16.0) gm/dL Hct 45.0 (34.0-46.0) % MCV 94.1 (80.0-100.0) fL MCH 31.0 (25.0-35.0) pg MCHC 32.9 (31.0-37.0) g/dL RDW 12.6 (11.5-15.5) % Plt Count 254 (150-450) k/uL MPV 7.6 Neutrophils % 58 % Lymphocytes % 34 % Monocytes % 4 % Eosinophils % 4 % Basophils % 0 % Neutrophils # 6.8 (1.3-7.7) k/uL Lymphocytes # 4.0 (1.0-4.8) k/uL Monocytes # 0.4 (0-1.0) k/uL Eosinophils # 0.4 (0-0.7) k/uL Basophils # 0.0 (0-0.2) k/uL PT 10.0 (10.0-12.5) sec INR 0.9 (<1.2) APTT 23.8 (22.0-30.0) sec D-Dimer 0.29 (<0.60) mg/L FEU Sodium 138 (137-145) mmol/L Potassium 3.9 (3.5-5.1) mmol/L Chloride 103 (98-107) mmol/L Carbon Dioxide 26 (22-30) mmol/L Anion Gap 9 mmol/L BUN 13 (7-17) mg/dL Creatinine 0.64 (0.52-1.04) mg/dL Est GFR (CKD-EPI)AfAm >90 (>60 ml/min/1.73 sqM) Est GFR (CKD-EPI)NonAf >90 (>60 ml/min/1.73 sqM) Glucose 89 (74-99) mg/dL Plasma Lactic Acid Jemal (0.7-2.0) mmol/L Calcium 9.4 (8.4-10.2) mg/dL Total Bilirubin 0.5 (0.2-1.3) mg/dL AST 16 (14-36) U/L ALT 24 (4-34) U/L Alkaline Phosphatase 74 (38-126) U/L Troponin I (0.000-0.034) ng/mL Total Protein 6.9 (6.3-8.2) g/dL Albumin 4.1 (3.5-5.0) g/dL Urine Color Urine Appearance (Clear) Urine pH (5.0-8.0) Ur Specific Mer[place] (1.001-1.035) Urine Protein (Negative) Urine Glucose (UA) (Negative) Urine Ketones (Negative) Urine Blood (Negative) Urine Nitrite (Negative) Urine Bilirubin (Negative) Urine Urobilinogen (<2.0) mg/dL Ur Leukocyte Esterase (Negative) Urine RBC (0-5) /hpf Urine WBC (0-5) /hpf Ur Squamous Epith Cells (0-4) /hpf Amorphous Sediment (None) /hpf Hyaline Casts (0-2) /lpf Urine Mucus (None) /hpf Urine HCG, Qual (Not Detectd) 03/20/23 03/20/23 03/20/23 Range/Units 17:44 17:44 17:44 WBC (3.8-10.6) k/uL RBC (3.80-5.40) m/uL Hgb (11.4-16.0) gm/dL Hct (34.0-46.0) % MCV (80.0-100.0) fL MCH (25.0-35.0) pg MCHC (31.0-37.0) g/dL RDW (11.5-15.5) % Plt Count (150-450) k/uL MPV Neutrophils % % Lymphocytes % % Monocytes % % Eosinophils % % Basophils % % Neutrophils # (1.3-7.7) k/uL Lymphocytes # (1.0-4.8) k/uL Monocytes # (0-1.0) k/uL Eosinophils # (0-0.7) k/uL Basophils # (0-0.2) k/uL PT (10.0-12.5) sec INR (<1.2) APTT (22.0-30.0) sec D-Dimer (<0.60) mg/L FEU Sodium (137-145) mmol/L Potassium (3.5-5.1) mmol/L Chloride (98-107) mmol/L Carbon Dioxide (22-30) mmol/L Anion Gap mmol/L BUN (7-17) mg/dL Creatinine (0.52-1.04) mg/dL Est GFR (CKD-EPI)AfAm (>60 ml/min/1.73 sqM) Est GFR (CKD-EPI)NonAf (>60 ml/min/1.73 sqM) Glucose (74-99) mg/dL Plasma Lactic Acid Jemal 1.2 (0.7-2.0) mmol/L Calcium (8.4-10.2) mg/dL Total Bilirubin (0.2-1.3) mg/dL AST (14-36) U/L ALT (4-34) U/L Alkaline Phosphatase (38-126) U/L Troponin I <0.012 (0.000-0.034) ng/mL Total Protein (6.3-8.2) g/dL Albumin (3.5-5.0) g/dL Urine Color Yellow Urine Appearance Slightly Cloudy H (Clear) Urine pH 6.5 (5.0-8.0) Ur Specific [place] 1.025 (1.001-1.035) Urine Protein Negative (Negative) Urine Glucose (UA) Negative (Negative) Urine Ketones Trace (Negative) Urine Blood Negative (Negative) Urine Nitrite Negative (Negative) Urine Bilirubin Negative (Negative) Urine Urobilinogen <0.2 (<2.0) mg/dL Ur Leukocyte Esterase Small (Negative) Urine RBC <1 (0-5) /hpf Urine WBC 2 (0-5) /hpf Ur Squamous Epith Cells 8 H (0-4) /hpf Amorphous Sediment Few H (None) /hpf Hyaline Casts 1 (0-2) /lpf Urine Mucus Few H (None) /hpf Urine HCG, Qual (Not Detectd) 12/01/23 Range/Units 17:44 WBC (3.8-10.6) k/uL RBC (3.80-5.40) m/uL Hgb (11.4-16.0) gm/dL Hct (34.0-46.0) % MCV (80.0-100.0) fL MCH (25.0-35.0) pg MCHC (31.0-37.0) g/dL RDW (11.5-15.5) % Plt Count (150-450) k/uL MPV Neutrophils % % Lymphocytes % % Monocytes % % Eosinophils % % Basophils % % Neutrophils # (1.3-7.7) k/uL Lymphocytes # (1.0-4.8) k/uL Monocytes # (0-1.0) k/uL Eosinophils # (0-0.7) k/uL Basophils # (0-0.2) k/uL PT (10.0-12.5) sec INR (<1.2) APTT (22.0-30.0) sec D-Dimer (<0.60) mg/L FEU Sodium (137-145) mmol/L Potassium (3.5-5.1) mmol/L Chloride (98-107) mmol/L Carbon Dioxide (22-30) mmol/L Anion Gap mmol/L BUN (7-17) mg/dL Creatinine (0.52-1.04) mg/dL Est GFR (CKD-EPI)AfAm (>60 ml/min/1.73 sqM) Est GFR (CKD-EPI)NonAf (>60 ml/min/1.73 sqM) Glucose (74-99) mg/dL Plasma Lactic Acid Jemal (0.7-2.0) mmol/L Calcium (8.4-10.2) mg/dL Total Bilirubin (0.2-1.3) mg/dL AST (14-36) U/L ALT (4-34) U/L Alkaline Phosphatase (38-126) U/L Troponin I (0.000-0.034) ng/mL Total Protein (6.3-8.2) g/dL Albumin (3.5-5.0) g/dL Urine Color Urine Appearance (Clear) Urine pH (5.0-8.0) Ur Specific [place] (1.001-1.035) Urine Protein (Negative) Urine Glucose (UA) (Negative) Urine Ketones (Negative) Urine Blood (Negative) Urine Nitrite (Negative) Urine Bilirubin (Negative) Urine Urobilinogen (<2.0) mg/dL Ur Leukocyte Esterase (Negative) Urine RBC (0-5) /hpf Urine WBC (0-5) /hpf Ur Squamous Epith Cells (0-4) /hpf Amorphous Sediment (None) /hpf Hyaline Casts (0-2) /lpf Urine Mucus (None) /hpf Urine HCG, Qual Not Detected (Not Detectd) Disposition <Jojo Quick - Last Filed: 03/20/23 17:25> Is patient prescribed a controlled substance at d/c from ED?: No Time of Disposition: 20:34 <Attila Ferraro - Last Filed: 03/20/23 20:34> Clinical Impression: Upper respiratory infection Disposition: HOME SELF-CARE Condition: Good Instructions (If sedation given, give patient instructions): Bronchiolitis (ED) Additional Instructions: Please return to the Emergency Department if symptoms worsen or any other concerns. Referrals: Joaquin Simons Jr, [Primary Care Provider] - 1-2 days
[2023-03-20 17:28] VITALS: RESP 16
[2023-03-20 18:07] LABS: Basophils % (A) 0 %; Eosinophils # (A) 0.4 k/uL (0-0.7); Eosinophils % (A) 4 %; HGB 14.8 gm/dL (11.4-16.0); Lymphocytes % (A) 34 %; MCHC 32.9 g/dL (31.0-37.0); MCV 94.1 fL (80.0-100.0); Mean Platelet Volume 7.6; Monocytes # (A) 0.4 k/uL (0-1.0); Monocytes % (A) 4 %; Neutrophils # (A) 6.8 k/uL (1.3-7.7); Neutrophils % (A) 58 %; Platelet Count 254 k/uL (150-450); RBC 4.78 m/uL (3.80-5.40); RDW 12.6 % (11.5-15.5); WBC 11.8 k/uL (3.8-10.6)
[2023-03-20 18:19] LABS: ALT 24 U/L (4-34); AST 16 U/L (14-36); African American GFR (CKD) >90 (>60 ml/min/1.73 sqM); Albumin 4.1 g/dL (3.5-5.0); Alkaline Phosphatase 74 U/L (38-126); Anion Gap 9 mmol/L; Blood Urea Nitrogen 13 mg/dL (7-17); Calcium 9.4 mg/dL (8.4-10.2); Carbon Dioxide 26 mmol/L (22-30); Chloride 103 mmol/L (98-107); Glucose 89 mg/dL (74-99); Non-African American GFR(CKD) >90 (>60 ml/min/1.73 sqM); Potassium 3.9 mmol/L (3.5-5.1); Sodium 138 mmol/L (137-145); Total Bilirubin 0.5 mg/dL (0.2-1.3); Total Protein 6.9 g/dL (6.3-8.2)
[2023-03-20 18:30] LABS: INR 0.9 (<1.2); Partial Thromboplastin Time 23.8 sec (22.0-30.0)
--- NOTE | 2023-03-20 18:40 | XR ---
EXAMINATION TYPE: XR chest 2V DATE OF EXAM: 03/20/2023 COMPARISON: 11/12/2015 INDICATION: Difficulty breathing, congestion TECHNIQUE: Frontal and lateral views of the chest are obtained. FINDINGS: The heart size is normal. The pulmonary vasculature is normal. The lungs are clear. IMPRESSION: 1. No acute pulmonary process.
[2023-03-20 19:34] LABS: Amorphous Sediment,Urine Few /hpf; Hyaline Casts,Urine 1 /lpf (0-2); Mucus,Urine Few /hpf; RBC,Urine <1 /hpf (0-5); Squamous Epithelial Cell,Urine 8 /hpf (0-4); WBC,Urine 2 /hpf (0-5)
[2023-03-20 19:40] LABS: Appearance,Urine Slightly Cloudy (Clear); Color,Urine Yellow; Specific Gravity,Urine 1.025 (1.001-1.035)
[2023-03-20 19:41] LABS: Bilirubin,Urine Negative (Negative); Blood,Urine Negative (Negative); Glucose,Urine (UA) Negative (Negative); Ketones,Urine Trace (Negative); Leukocyte Esterase,Urine Small (Negative); Nitrite,Urine Negative (Negative); PH, Urine 6.5 (5.0-8.0); Protein,Urine Negative (Negative); Urobilinogen,Urine <0.2 mg/dL (<2.0)
[2023-03-20 20:59] VITALS: BP 132/98; PULSE 87; TEMP 98.7
== END 2023-03-20 20:42 | disposition home or self-care (01) ==
LOC: EC 16:58
DX: J06.9 Acute upper respiratory infection, unspecified (principal); J45.909 Unspecified asthma, uncomplicated
CPT/HCPCS: 36415; 71046; 80053; 81001; 81025; 83605; 84484; 85025; 85379; 85610; 85730; 93005; 99285

== ENCOUNTER → 2023-09-22 | Outpatient (CLI) | payer BC ==
[2023-09-23 19:52] LABS: Alternaria alternata IgE <0.10 kU/L; Aspergillus fumagatus IgE <0.10 kU/L; Birch IgE <0.10 kU/L; Cat Epith & Dander IgE <0.10 kU/L; Cladosporian herbarum IgE <0.10 kU/L; Cockroach IgE <0.10 kU/L; Dermato. farinae IgE <0.10 kU/L; Dog Dander IgE <0.10 kU/L; Elm IgE <0.10 kU/L; Maple (Box Elder) IgE <0.10 kU/L; Oak IgE <0.10 kU/L; Ragweed,Common IgE <0.10 kU/L; Red Top (Bentgrass) IgE <0.10 kU/L
== END | disposition home or self-care (01) ==
LOC: LABWHC1 11:13
PROVIDERS: ATTEND Internal Medicine Critical Care Medicine
DX: R06.2 Wheezing (principal)
CPT/HCPCS: 36415; 82785; 85008; 86003

== ENCOUNTER → 2023-10-19 | Outpatient (CLI) | payer BC ==
--- NOTE | 2023-10-19 12:03 | CT ---
EXAMINATION TYPE: CT chest w con CT DLP: 588 mGycm, Automated exposure control for dose reduction was used. DATE OF EXAM: 10/19/2023 11:54 AM COMPARISON: Chest radiograph 09/23/2023 CLINICAL INDICATION:Female, 32 years old with history of R05.3 CHRONIC COUGH; PHH, chronic cough TECHNIQUE: Multiple axial images were obtained through the chest following the administration of 100 cc of Isovue 300. . Coronal and sagittal reformats reviewed. FINDINGS: LUNGS/ PLEURA: The lung parenchyma appears unremarkable. No pulmonary nodules or masses. AIRWAY: Patent and unremarkable.. HEART: Size within normal limits. . MEDIASTINUM: No gross evidence of adenopathy. VASCULATURE: No aortic aneurysm. MUSCULOSKELETAL: No acute osseous abnormalities. Remote right-sided lateral fifth rib fracture. SOFT TISSUES/LYMPH NODES: Unremarkable. LOWER NECK: No significant findings. UPPER ABDOMEN: Gallbladder is surgically absent. No biliary ductal dilatation. IMPRESSION: No acute thoracic process. The lungs appear unremarkable.
== END | disposition home or self-care (01) ==
LOC: RADCTMAIN 11:21
PROVIDERS: ATTEND Internal Medicine Critical Care Medicine
DX: R05.3 Chronic cough (principal)
CPT/HCPCS: 71260; Q9967

== ENCOUNTER → 2023-11-11 | Outpatient (CLI) | payer BC ==
--- NOTE | 2023-11-22 22:20 | P.PCN ---
Date of Procedure: 11/11/23 Operative Findings: Home sleep study testing Date of service is 11/11/2023 History This is a 32-year-old female patient, with symptoms of snoring, sleep fragmentation and chronic sleepiness. Home sleep study was ordered due to concerns of obstructive sleep apnea. 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 She has also history of unexplained chronic cough Pertinent physical findings Weight is 230 pounds with a body mass index of 43.5 Technical description This is a type III home sleep study. The [employer] system was used to complete this home sleep study. Total recording duration was 9 hours and 40 minutes. Study started at 9:35 PM and ended at 7:15 AM. There was more than 9 hours of flow and oxygen saturation monitoring during this current home sleep study Results The respiratory evaluation showed a total of 10 obstructive hypopneas with 0 obstructive apneas and the resulting AHI was 1.1. No significant nocturnal oxygen desaturation was encountered and the patient was unable to maintain a pulse ox above 90% throughout the sleep study Cardiac summary The average heart rate was 57 with a minimum heart rate of 44 and a maximum rate of 95 Assessment Primary snoring, no evidence of any sleep breathing disorder with an AHI of 1.1 No evidence of any nocturnal oxygen desaturations Obesity with a BMI of 43.5 Chronic cough currently under workup Plan Encourage weight loss. Maintain regular sleep schedule Maintain good sleep hygiene measures No need for CPAP therapy and this is a negative study in regards to obstructive sleep apnea. The patient will be reassured in this regard.
== END ==
LOC: 3 N SLEEP 16:35
PROVIDERS: ATTEND Internal Medicine Critical Care Medicine
DX: G47.10 Hypersomnia, unspecified (principal); R06.83 Snoring; E66.9 Obesity, unspecified; R05.3 Chronic cough; Z68.41 Body mass index [BMI] 40.0-44.9, adult

== ENCOUNTER → 2024-02-19 | Outpatient (CLI) | payer BC ==
--- NOTE | 2024-02-28 17:03 | MM ---
Reason for Exam: Screening (asymptomatic). Baseline mammogram. Patient History: Menarche at age 10. First Full-Term at age 26. Premenopausal. Patient has history of breast feeding. Currently using Hormonal Contraceptives, starting at age 31. Mother had breast cancer, age 59. Last menstrual period: 01/27/2024 Risk Values: Gwendolyn 5 year model risk: 0.6%. NCI Lifetime model risk: 19.2%. Prior Study Comparison: Patient's first Mammogram. Tissue Density: The breasts are almost entirely fatty. Findings: Analyzed By CAD. The pattern is symmetrical. Nodularities within the right breast. No significant interval change is evident No suspicious groups of microcalcifications, spiculated or lobular masses, architectural distortion or other secondary signs of malignancy are mammographically apparent. Overall Assessment: Benign, BI-RAD 2 Management: Screening Mammogram of both breasts in 1 year. A negative mammogram report should not preclude additional follow up of suspicious palpable abnormalities. Patient should continue monthly self breast exam. A clinical breast exam by your physician is recommended on an annual basis and results should be correlated with mammographic findings. Note on Gwendolyn scores and lifetime risk: 1. A Gwendolyn score greater than 3% is considered moderate risk. If this is the case, consider specialist referral to assess eligibility for a risk reducing agent. 2. If overall lifetime risk for the development of breast cancer is 20% or higher, the patient may qualify for future screening with alternating mammogram and breast MRI. [facility], , 02/28/2024 5:00 PM. Electronically signed and approved by: Oren Mooney D.O. Radiolog[facility]
== END | disposition home or self-care (01) ==
LOC: RADMAMWWP 08:35
PROVIDERS: ATTEND Obstetrics & Gynecology
DX: Z12.31 Encounter for screening mammogram for malignant neoplasm of breast (principal); Z80.3 Family history of malignant neoplasm of breast
CPT/HCPCS: 77063; 77067